=== PATIENT | female | born 1995 | race Hispanic/Latino ===

== ENCOUNTER 2018-08-24 09:28 | Outpatient (CLI) | payer OTHER ==
--- NOTE | 2018-08-24 11:30 | ULT ---
OB ULTRASOUND: Comparison: None. History: female, evaluate size, dates, and anatomy. Technique: Multiplanar grayscale and color doppler images were obtained in a transabdominal and trans vaginal ultrasound. FINDINGS: There is a single live intrauterine with heart rate of 140 beats/minute. survey was p erformed which is unremarkable. The head, intracranial structures, heart, stomach, kidneys, umbilical cord, umbilical cord insertion, spine, face and extremities were evaluated and were unremarkable. Av erage age of the fetus based off today's examination is 21 weeks 0 days. The following measurements w ere taken: BPD 4.89 cm 20 weeks 6 days HC 18.55 cm 21 weeks 0 days AC 15.64 cm 20 weeks 6 days FL 3.45 cm 21 weeks 0 days The placenta is posterior in location without evidence of placenta previa. The cervix is normal in le ngth. Amniotic fluid volume is subjectively within normal limits. IMPRESSION: Single live intrauterine with estimated age of 21 weeks 0 days. POS: TIM
== END 2018-08-24 09:29 | disposition home or self-care (01) ==
LOC: BICULT 09:28
PROVIDERS: ATTEND Family Medicine
DX: Z34.82 Encounter for supervision of other normal pregnancy, second trimester (principal); Z3A.21 21 weeks gestation of pregnancy
CPT/HCPCS: 76805

== ENCOUNTER 2019-01-09 05:30 | Inpatient (IN) | payer MEDICAID, OTHER, SELFPAY ==
[2019-01-09] MEDS: Lactated Ringer's 1,000 ML IV SCH ×2 (07:31→10:58)
[2019-01-09] MEDS ORDERED: Methylergonovine 0.2 MG/ML VIAL IM PRN (07:39)
[2019-01-09] MEDS ORDERED: Carboprost 250 MCG/ML AMP IM PRN (07:39)
[2019-01-09] MEDS ORDERED: Misoprostol 200 MCG TAB PR PRN (07:39)
[2019-01-09] MEDS ORDERED: Ibuprofen 800 MG TAB PO PRN (07:39)
[2019-01-09] MEDS ORDERED: Diphenoxylate HCl/Atropine Tablet PO PRN (07:39)
[2019-01-09] MEDS ORDERED: Promethazine HCl 25 MG/ML VIAL IM PRN ×2 (07:39→12:03)
[2019-01-09] MEDS ORDERED: HYDROcodone/Acetaminophen 5/325 mg Tablet PO PRN ×3 (07:39→14:48)
[2019-01-09] MEDS ORDERED: Lidocaine 1% (PF) 30 ML VIAL SC PRN (07:39)
[2019-01-09] MEDS ORDERED: Ondansetron PF 4 MG/2 ML Vial IVP PRN ×3 (07:39→14:48)
[2019-01-09] MEDS ORDERED: Butorphanol Tartrate 1 MG/ML VIAL SLOW IVP PRN (07:39)
[2019-01-09] MEDS ORDERED: NS / Oxytocin 40 units/1000ml 1,000 ML IV PRN (07:39)
[2019-01-09] MEDS ORDERED: NS w/ Oxytocin 10 units 500 ML IV SCH ×2 (07:39)
[2019-01-09] MEDS ORDERED: NS w/ Oxytocin 10 units 500 ML ONE (07:41)
[2019-01-09 08:12] LABS: Hemoglobin 11.5 g/dL (12.0-16.0); Mean Corpuscular Hemoglobin 27.2 pg (27.0-31.0); Mean Corpuscular Volume 85.1 fL (78.0-98.0); Platelet Count 217 thou/uL (130-400); RBC Distribution Width 14.4 % (11.5-14.5); Red Blood Cell (RBC) Count 4.23 mill/uL (4.20-5.40); White Blood Cell (WBC) Count 8.8 thou/uL (4.8-10.8)
[2019-01-09 08:50] LABS: Syphilis Antibody Nonreactive (Nonreactive); Syphilis Antibody Index 0.03 S/CO (<1.00 Non-Reactive)
[2019-01-09 08:51] LABS: HBSAg Index 0.32 S/CO (0-0.99); Hep B Surf Ag Non-Reactive S/CO (NonReactive)
[2019-01-09] MEDS ORDERED: Fentanyl 4 mcg/Bup 0.1% Cadd 100 ML ONE (10:30)
[2019-01-09] MEDS ORDERED: Lidocaine 1.5%/Epinephrine 1:200,000 5 ML AMPUL IJ ONE (10:31)
[2019-01-09] MEDS ORDERED: Bupivacaine 0.25% HCL 30 ML VIAL ONE (11:11)
[2019-01-09] MEDS ORDERED: Sodium Chloride 0.9% (PF) 10 ML VIAL ONE (11:11)
[2019-01-09] MEDS ORDERED: Lidocaine 2% MPF 10 ML AMP (For Epidural Use) ONE (11:11)
[2019-01-09] MEDS ORDERED: diphenhydrAMINE 50 MG/ML VIAL IVP PRN (12:03)
[2019-01-09] MEDS ORDERED: Naloxone HCl 0.4 mg/ml Vial IVP PRN ×2 (12:03)
[2019-01-09] MEDS ORDERED: Lactated Ringer's 500 ML IV PRN (12:03)
[2019-01-09] MEDS ORDERED: Acetaminophen 325 MG TAB PO PRN (12:03)
[2019-01-09] MEDS ORDERED: Eucerin (Mineral Oil/Petrolatum,White) 30 gm Jar TOP PRN (12:03)
[2019-01-09] MEDS ORDERED: ePHEDrine/0.9% NaCl/PF SYRINGE 50 mg/10 ml SLOW IVP PRN (12:03)
[2019-01-09] MEDS ORDERED: Communication Order-Pharmacy FS SCH (12:15)
[2019-01-09] MEDS ORDERED: Fentanyl 4 mcg/Bupivacaine 0.1% Cassette 100 ML EPIDURAL SCH (12:15)
[2019-01-09] MEDS ORDERED: diphenhydrAMINE 25 MG CAP PO PRN (14:48)
[2019-01-09] MEDS ORDERED: Lanolin Ointment 7 GM TUBE TOP PRN (14:48)
[2019-01-09] MEDS ORDERED: Milk Of Magnesia 30 ML UDCUP PO PRN (14:48)
[2019-01-09] MEDS ORDERED: Benzocaine-Menthol 82.5 ML CAN TOP PRN (14:48)
[2019-01-09] MEDS ORDERED: NS / Oxytocin 40 units/1000ml 1,000 ML IV SCH (14:48)
[2019-01-09] MEDS ORDERED: Bisacodyl 10 MG SUPP PR PRN (14:48)
[2019-01-09] MEDS: Ferrous Sulfate 325 MG TAB PO SCH (17:02)
[2019-01-09] MEDS: Ibuprofen 800 MG TAB PO SCH ×2 (17:02→20:37)
[2019-01-09] MEDS: Docusate Calcium (SURFAK) 240 MG CAP PO SCH (20:37)
[2019-01-10] MEDS: Ibuprofen 800 MG TAB PO SCH ×2 (05:04→14:01)
[2019-01-10 05:31] LABS: Hemoglobin 10.3 g/dL (12.0-16.0); Mean Corpuscular HGB CONC 32.9 g/dL (32.0-36.0); Mean Corpuscular Hemoglobin 27.8 pg (27.0-31.0); Mean Corpuscular Volume 84.5 fL (78.0-98.0); Mean Platelet Volume 8.9 fL (7.4-10.4); Platelet Count 198 thou/uL (130-400); RBC Distribution Width 14.2 % (11.5-14.5); White Blood Cell (WBC) Count 9.2 thou/uL (4.8-10.8)
[2019-01-10] MEDS ORDERED: Prenatal Vitamin 1 TAB PO SCH (09:00)
[2019-01-10] MEDS: Ferrous Sulfate 325 MG TAB PO SCH (10:31)
[2019-01-10] MEDS: Docusate Calcium (SURFAK) 240 MG CAP PO SCH (10:31)
[2019-01-10 11:18] VITALS: BP 118/86; TEMP 98.6
== END 2019-01-10 15:40 | disposition home or self-care (01) | DRG 807 ==
LOC: L&D 06:54 → 3SW 15:29
PROVIDERS: ADMIT Family Medicine; ATTEND Family Medicine
PROC: 10E0XZZ Delivery of Products of Conception, External Approach (ICD-10-PCS; principal; 2019-01-09)
PROC: 10907ZC Drainage of Amniotic Fluid, Therapeutic from Products of Conception, Via Natural or Artificial Opening (ICD-10-PCS; 2019-01-09)
PROC: 3E033VJ Introduction of Other Hormone into Peripheral Vein, Percutaneous Approach (ICD-10-PCS; 2019-01-09)
DX: O80 Encounter for full-term uncomplicated delivery (principal); Z37.0 Single live birth; Z3A.40 40 weeks gestation of pregnancy; Z67.40 Type O blood, Rh positive
CPT/HCPCS: 36415; 51702; 85027; 86780; 86850; 86900; 86901; 87340; J2001; J2590; J3490; S0020

== ENCOUNTER 2019-01-13 11:50 | Emergency (ER) | payer MEDICAID, SELFPAY ==
[2019-01-13] MEDS ORDERED: Ketorolac Tromethamine 30 MG/ML VIAL ONE (12:50)
[2019-01-13 12:53] LABS: Bilirubin Negative (Negative); Blood, Urine Large (Negative); Clarity CLOUDY (Clear); Glucose, Urine (Dipstick) Negative (Negative); Leukocyte Small (Negative); Nitrite Negative (Negative); Protein, Urine (Dipstick) Negative (Neg-Trace); Specific Gravity, Urine 1.015 (1.002-1.036); pH, Urine 6.5 (5.0-9.0)
[2019-01-13 12:57] LABS: Bacteria/HPF None Seen HPF (None Seen); Hyaline Casts/LPF 0-3 HYALINE CAST LPF (0-3 Hyaline)
[2019-01-13 13:15] LABS: #Lymphocytes 1.4 thou/uL (1.20-3.40); #Monocytes 0.4 thou/uL (0.11-0.59); #Neutrophils 6.7 thou/uL (1.40-6.50); %Basophils 0.2 % (0.0-1.0); %Eosinophils 0.3 % (0.0-10.0); %Lymphocytes 15.9 % (21.0-51.0); %Monocytes 4.3 % (0.0-10.0); %Neutrophils 79.3 % (42.0-75.0); Hemoglobin 12.6 g/dL (12.0-16.0); Mean Corpuscular HGB CONC 32.6 g/dL (32.0-36.0); Mean Corpuscular Hemoglobin 27.5 pg (27.0-31.0); Mean Corpuscular Volume 84.2 fL (78.0-98.0); Mean Platelet Volume 8.2 fL (7.4-10.4); Platelet Count 261 thou/uL (130-400); RBC Distribution Width 14.9 % (11.5-14.5); Red Blood Cell (RBC) Count 4.57 mill/uL (4.20-5.40); White Blood Cell (WBC) Count 8.5 thou/uL (4.8-10.8)
[2019-01-13 13:34] LABS: Anion Gap 14 mmol/L (10-20); BUN (Urea Nitrogen) 7 mg/dL (7.0-18.7); Calc. Creatinine Clearance 0 mL/min (70-130); Calcium 9.2 mg/dL (7.8-10.44); Carbon Dioxide 20 mmol/L (22-29); Chloride 110 mmol/L (98-107); Estimated GFR-MDRD Greater than 90; Glucose 97 mg/dL (70-105); Potassium 3.8 mmol/L (3.5-5.1); Sodium 140 mmol/L (136-145)
== END 2019-01-13 15:12 | disposition home or self-care (01) ==
LOC: ERS 11:50
DX: O89.4 Spinal and epidural anesthesia-induced headache during the puerperium (principal)
CPT/HCPCS: 80048; 81003; 81015; 85025; 85652; 86140; 96361; 96374; J1885

== ENCOUNTER 2022-07-23 08:58 | Outpatient (CLI) | payer OTHER | END 2022-07-23 08:59 | disposition home or self-care (01) | LOC: BICULT 08:58 | PROVIDERS: ATTEND Advanced Practice Midwife | DX: Z34.92 Encounter for supervision of normal pregnancy, unspecified, second trimester (principal); Z3A.19 19 weeks gestation of pregnancy | CPT/HCPCS: 76805 ==